=== PATIENT | male | born 1940 | race Caucasian/White ===

== ENCOUNTER 2017-09-14 10:15 | Inpatient (IN) | payer OTHER ==
[~2017-09-14] VITALS: Ht 157.5 cm; Wt 72.6 kg
[2017-09-14] MEDS ORDERED: GLIPIZIDE ER10 MG PO (10:37)
[2017-09-14] MEDS ORDERED: GABAPENTIN800 MG PO (10:37)
[2017-09-14] MEDS ORDERED: ACTOS45 MG PO (10:37)
[2017-09-14] MEDS ORDERED: NABUMETONE750 MG PO (10:37)
[2017-09-14] MEDS ORDERED: LORAZEPAM0.5 MG PO (10:38)
[2017-09-14] MEDS ORDERED: MIRTAZAPINE30 M1 PO (10:38)
[2017-09-14] MEDS ORDERED: PROZAC40 MG PO (10:39)
[2017-09-14] MEDS ORDERED: HALOPERIDOL0.5 MG PO (10:39)
[2017-09-14] MEDS ORDERED: PRAVASTATIN SOD40 MG PO (10:40)
[2017-09-23] MEDS ORDERED: PERCOCET 5-3251 EACH PO (13:20)
[2017-09-23] MEDS ORDERED: DOCUSATE SODIU100 MG PO (13:20)
[2017-09-23] MEDS ORDERED: CLONAZEPAM1 MG PO (13:20)
== END 2017-09-23 16:41 | disposition home or self-care (01) | DRG 472 ==
LOC: O/R 09-22 04:30 → SURH 09-22 07:00 → PED 09-22 10:11 → SURH 09-22 10:15 → PED 09-23 16:41
PROVIDERS: Orthopaedic Surgery Orthopaedic Surgery of the Spine
PROC: 0RG20A0 Fusion of 2 or more Cervical Vertebral Joints with Interbody Fusion Device, Anterior Approach, Anterior Column, Open Approach (ICD-10-PCS; 2017-09-22)
PROC: 0RT30ZZ Resection of Cervical Vertebral Disc, Open Approach (ICD-10-PCS; principal; 2017-09-22 07:00)
DX: M47.12 Other spondylosis with myelopathy, cervical region (principal); M50.023 Cervical disc disorder at C6-C7 level with myelopathy; E11.9 Type 2 diabetes mellitus without complications